=== PATIENT | male | born 1945 | race Caucasian/White ===

== ENCOUNTER → 2019-11-03 10:25 | Outpatient (CLI) | payer MEDICARE, OTHER, SELFPAY ==
--- NOTE | 2019-11-03 10:28 | DI.RAD.S_ITS ---
PROCEDURE: XR TOE LT MIN 2V INDICATIONS: pain/swelling left great toe TECHNIQUE: 3 views of the great toe acquired. COMPARISON: None. FINDINGS: Bones: There is a mildly comminuted fracture in the distal aspect of the 1st distal phalanx. There is slight associated dorsal angulation. No suspicious bony lesions. Soft tissues: There is soft tissue swelling of the great toe distally. No suspicious soft tissue densities. IMPRESSION: 1. Mildly comminuted fracture of the 1st distal phalanx. Dictated by: Shan Brooks M.D. on 11/03/2019 at 10:51 Approved by: Shan Brooks M.D. on 11/03/2019 at 11:19
== END ==
PROVIDERS: Visit Provider Nurse Practitioner
DX: S92.422A Displaced fracture of distal phalanx of left great toe, initial encounter for closed fracture (principal); M79.675 Pain in left toe(s); M79.89 Other specified soft tissue disorders; W22.09XA Striking against other stationary object, initial encounter
CPT/HCPCS: 73660

== ENCOUNTER → 2024-05-16 09:53 | Outpatient (CLI) | payer MEDICARE, OTHER, SELFPAY | LOC: LAB 09:56 | PROVIDERS: Referring Provider Physician Assistant Medical; Visit Provider Physician Assistant Medical | DX: R97.20 Elevated prostate specific antigen [PSA] (principal) | CPT/HCPCS: 36415; 84153; 84154 ==

== ENCOUNTER 2024-11-10 20:38 | Emergency (ER) | payer MEDICARE, OTHER, SELFPAY ==
[2024-11-10] VITALS (8 sets, daily range): BP systolic 98–112; BP diastolic 58–64; PULSE 70–86; RESP 12–28; TEMP 36.7; O2SAT 93–99; BMI 22.1
--- NOTE | 2024-11-10 20:31 | EKG_ITS ---
[facility] [address] [place] [address] Test Date: 2024-11-10 Pat Name: Yobani Garcia Department: [facility] Room: Gender: Male [employer]: TEMO : 1945 Requested By: Order Number: [id number] Reading MD: Bryson Harding Measurements Intervals [place] Rate: 86 P: 68 CT: 168 QRS: -64 QRSD: 84 T: 66 QT: 368 QTc: 440 Interpretive Statements Sinus rhythm with occasional premature ventricular complexes Left anterior fascicular block Electronically Signed On 11-11-2024 8:17:59 PST by Bryson Harding
--- NOTE | 2024-11-10 20:32 | DI.RAD.S_ITS ---
PROCEDURE: XR CHEST 1V INDICATIONS: chest pain TECHNIQUE: One view of the chest was acquired. COMPARISON: None. FINDINGS: Surgical changes and devices: None. Lungs and pleura: Lungs are clear. No pleural effusions or pneumothorax. Mediastinum: Mediastinal contours appear normal. Heart size is normal. Bones and chest wall: No suspicious bony lesions. Overlying soft tissues appear unremarkable. IMPRESSION: No acute cardiopulmonary abnormality is seen. Approved by: Sharmin Olmos M.D.,Ph.D. on 11/10/2024 at 22:24
--- NOTE | 2024-11-10 20:43 | ED.ARRPALP ---
HPI - Arrhythmia/Palpitations General Chief Complaint: Arrhythmia/Palpitations Stated Complaint: SVT, resolved Time Seen by Provider: 11/10/24 20:43 Source: EMS Mode of arrival: EMS History of Present Illness HPI narrative: 79-year-old male reports history of palpitation fast heart rate sensation after argument with his who has recent cognitive decline and recurrent episodes of not recognizing him, he has had to redirect her a number of times, and sometimes will take himself out of their home briefly to ?cool down? from the emotional distress. Four days ago he had a similar event, was able to go outside and breathe deeply, in the fast heart rate sensation went away. He has a fit bit that indicated that he had a fast heart rate of 170 tonight after similar emotional confrontation when was not recognize him as her , he went outside, no response to deep breathing, after 15 minutes symptoms persisted, he called 911, during transport noted to have narrow complex tachycardia, was given IV push adenosine 6 mg then 12 mg, with resolution of tachycardia. No dizziness, no chest pain, no shortness of breath. He denies neck, back, arm pains. He has a resting heart rate of a proximally 60, does not take metoprolol medication. No pacemaker. Related Data Home Medications Medication Instructions Recorded Confirmed [Clear Lungs ES] ##0 11/11/16 11/03/19 [GARLIC] ##0 11/11/16 11/03/19 [KRILL OIL] 500 ##0 11/11/16 11/03/19 [MELATONIN+L-THEANINE] ##0 11/11/16 11/03/19 [PROSTATE HEALTH] ##0 11/11/16 11/03/19 [THISYLIN MAX STR] ##0 11/11/16 11/03/19 [TURMERIC] ##0 11/11/16 11/03/19 [ZYFLAMEND WHOLE BODY] ##0 11/11/16 11/03/19 albuterol sulfate 90 mcg/actuation 1 puff INH ##0 11/11/16 11/03/19 aerosol inhaler (Ventolin HFA) beclomethasone dipropionate 80 1 puff INH BID ##0 11/11/16 11/03/19 mcg/actuation aerosol inhaler (Qvar) calcium citrate 315 mg 1 tab PO ##0 11/11/16 11/03/19 calcium-vitamin D3 6.25 mcg (250 unit) tablet (Citracal + Vitamin D Maximum) cholecalciferol (vitamin D3) 50 2,000 unit PO ##0 11/11/16 11/03/19 mcg (2,000 unit) capsule (Vitamin D3) coQ10 (ubiquinol) 100 mg capsule 100 mg PO ##0 11/11/16 11/03/19 cyanocobalamin (vitamin B-12) 1,000 mcg PO QDAY ##0 11/11/16 11/03/19 1,000 mcg tablet,extended release lutein 25 mg-zeaxanthin 5 mg 1 ea PO ##0 11/11/16 11/03/19 capsule multivitamin (Multiple Vitamins 1 tab PO QDAY ##0 11/11/16 11/03/19 tablet) Allergies Allergy/AdvReac Type Severity Reaction Status Date / Time amoxicillin [AMOXICILLIN] Allergy Unknown Verified 11/10/24 20:35 erythromycin base AdvReac Mild Nausea Verified 11/10/24 20:35 Patient History Social History Smoking Status: Never smoker Smoking Status: Never smoker Exam Narrative Exam Narrative: GENERAL: Well-developed patient, in mild distress. HEAD: Atraumatic. Normocephalic. EYES: Pupils equal round and reactive. Extraocular motions intact. No scleral icterus. No injection or drainage. ENT: Nose without bleeding, purulent drainage. Throat without erythema, tonsillar hypertrophy or exudate. Airway patent. NECK: Trachea midline. Non tender CARDIOVASCULAR: Regular rate and rhythm without murmurs, gallops, or rubs. RESPIRATORY: Clear to auscultation. Breath sounds equal bilaterally. No wheezes, rales, or rhonchi. GASTROINTESTINAL: Abdomen soft, non-tender, nondistended. EXTREMITIES: No edema or joint tenderness. BACK: Nontender without deformity or crepitance. No flank tenderness. NEURO: AOx3. Motor functions grossly nonfocal SKIN: No rash or erythema of visible areas Initial Vital Signs Initial Vital Signs: Vital Signs Oxygen Delivery Method Room Air 11/10/24 20:31 Course Orders Ordered: Discontinued Medications Aspirin (Aspirin 81 Mg Chew Tab) 324 mg PO NOW ONE Stop: 11/10/24 20:33 Last Admin: 11/10/24 22:19 Dose: Not Given Documented By: RUMA Vital Signs Vital signs: Vital Signs - 8 hr 11/10/24 22:30 Pulse Rate 70 Respiratory Rate 27 H Blood Pressure 101/61 Pulse Oximetry 94 MDM - Arrhythmia/Palpitations Lab Data Attestation: I reviewed the patient's lab results. Lab results narrative: White blood cell count 9000, hemoglobin 14.2, platelets adequate. Basic metabolic panel unremarkable. Liver functions and lipase normal. BNP negative. Troponin negative/unmeasurable. 11/10/24 20:32 11/10/24 20:32 Labs: Lab Results 11/10/24 Range/Units 20:32 WBC 9.0 (4.5-11.0) X10^3/uL RBC 4.71 (4.5-5.9) X10^6/uL Hgb 14.2 (13.5-17.5) g/dL Hct 42.0 (41-53) % MCV 89.1 (80-100) fL MCH 30.1 (26-34) PG MCHC 33.8 (30-36) % RDW 13.3 (11.6-14.8) % Plt Count 243 (150-400) X10^3/uL Neut % (Auto) 57.2 (50-75) % Lymph % (Auto) 29.8 (25-40) % [place] % (Auto) 9.2 (3-14) % Eos % (Auto) 3.1 (2-4) % Baso % (Auto) 0.7 (0-2) % Neut # (Auto) 5100 (1899-6144) /uL Lymph # (Auto) 2700 (9429-8714) /uL [place] # (Auto) 800 (0-900) /uL Eos # (Auto) 300 (0-450) /uL Baso # (Auto) 100 (0-100) /uL PT 10.7 (9.4-12.5) SECONDS INR 0.9 (0.9-1.3) APTT 33 (25.1-36.5) SECONDS Sodium 136 L (137-145) mmol/L Potassium 3.9 (3.4-5.1) mmol/L Chloride 106 (98-107) mmol/L Carbon Dioxide 25 (22-32) mmol/L BUN 20 (9-20) mg/dL Creatinine 0.73 (0.66-1.25) mg/dL Estimated GFR > 60 (>60) mL/min BUN/Creatinine Ratio 27.4 H (6-22) Glucose 88 (80-110) mg/dL Calcium 9.1 (8.4-10.2) mg/dL Magnesium 1.8 (1.6-2.3) mg/dL Total Bilirubin 0.5 (0.2-1.3) mg/dL AST 35 (17-59) IU/L ALT 25 (<50) IU/L Alkaline Phosphatase 43 (38-126) U/L Total Creatine Kinase 123 (55-170) U/L Troponin I < 0.012 (0.01-0.034) ng/mL NT-Pro-B Natriuret Pep 101 (<450) pg/mL Total Protein 7.1 (6.3-8.2) g/dL Albumin 3.8 (3.5-5.0) g/dL Globulin 3.3 (1.7-4.1) g/dL Albumin/Globulin Ratio 1.2 (1.0-2.8) Lipase 58 (23-300) U/L ECG Data Attestation: I personally reviewed and interpreted this ECG as follows: Interpretation: Normal sinus rhythm with rate 86, occasional PVC, left anterior fascicular block. NV 168, QRS 84, QTC 440. MDM Narrative Medical decision making narrative: 79-year-old male with narrow complex tachycardia resolved with pre-hospital EMS doses of adenosine 6 mg then 12 mg IV push, normal sinus rhythm on arrival. Similar episode few days ago he was able to abort with deep breathing. Both episodes were in emotional context with his who is suffering from cognitive decline, not recognize him, precipitating an argument. He feels recovered. EKG, labs pending. Troponin negative/unmeasurable. Electrolytes unremarkable. Patient feels better would like to go home, declines further testing at this time. We discussed stress management strategies. Patient pursuing mental health and possible alternative placement resources for his mentally declining . Discharged home, improved, stable. Return precautions discussed Discharge Plan Departure Patient Disposition: Home Clinical Impression: Paroxysmal SVT (supraventricular tachycardia) Instructions: DI for Paroxysmal Supraventricular Tachycardia Activity Restrictions/Additional Instructions: Fast heart rate episode tonight induced in context of emotional upset, similar episode 4 days ago resolved with deep breathing exercises, however tonight symptoms seemed to be persisting, with fast heart rate noted to be on your fit bit wrist monitor as well. You did not pass out or feel that you would pass out. You called EMS, who was able to administer IV adenosine 6 mg and then 12 mg, which aborted the abnormal SVT rhythm. While in the emergency department you did not seem to have any ectopic beats. Labs were sent, electrolytes unremarkable, troponin from your heart negative/unmeasurable. We did discuss possibly using metoprolol but your resting heart rate is about 60, might become dizzy if we start metoprolol medications. Discuss further with your regular provider and/or Cardiology. Contact information given to Dr. Villa of Cardiology who was on-call janell, though you might require PCP referral to see this floor representative. Consider follow up with your regular provider on Thursday to coordinate cardiology follow up further as needed. Sometimes cardiac monitoring might be done to see if you have other abnormal rhythms that might not be symptomatic, that might require specific treatments. Return earlier to this/nearest emergency department for any change worsening symptoms or any concerns prior Prescriptions: No Action beclomethasone dipropionate [Qvar] 80 MCG/PUFF aerosol 1 puff INH BID Qty: 0 albuterol sulfate [Ventolin HFA] 90 MCG/PUFF HFA aerosol inhaler 1 puff INH Qty: 0 [Clear Lungs ES] Qty: 0 [KRILL OIL] 500 Qty: 0 [THISYLIN MAX STR] Qty: 0 cholecalciferol (vitamin D3) [Vitamin D3] 2,000 UNIT capsule 2,000 unit PO Qty: 0 lutein-zeaxanthin 1 EACH capsule 1 ea PO Qty: 0 [GARLIC] Qty: 0 [MELATONIN+L-THEANINE] Qty: 0 multivitamin [Multiple Vitamins] 1 EACH tablet 1 tab PO QDAY Qty: 0 coQ10 (ubiquinol) 100 MG capsule 100 mg PO Qty: 0 [PROSTATE HEALTH] Qty: 0 [TURMERIC] Qty: 0 calcium citrate-vitamin D3 [Citracal + D Maximum] 1,500 MG/250 IU tablet 1 tab PO Qty: 0 cyanocobalamin (vitamin B-12) 1,000 MCG tablet extended release 1,000 mcg PO QDAY Qty: 0 [ZYFLAMEND WHOLE BODY] Qty: 0 Referrals: Bean Villa MD [Physician] - Stand Alone Forms: Patient Portal/API/Survey
[2024-11-10 21:45] LABS: Add Manual Diff / Slide Review NO; Basophils Absolute Auto 100 /uL (0-100); Basophils Percent Auto 0.7 % (0-2); Eosinophils Absolute Auto 300 /uL (0-450); Eosinophils Percent Auto 3.1 % (2-4); Hemoglobin 14.2 g/dL (13.5-17.5); Lymphocytes Absolute Auto 2700 /uL (1100-4500); Lymphocytes Percent Auto 29.8 % (25-40); Mean Corpuscular HGB Conc 33.8 % (30-36); Mean Corpuscular Hemoglobin 30.1 PG (26-34); Mean Corpuscular Volume 89.1 fL (80-100); Monocytes Absolute Auto 800 /uL (0-900); Monocytes Percent Auto 9.2 % (3-14); Neutrophils Absolute Auto 5100 /uL (1500-7000); Neutrophils Percent Auto 57.2 % (50-75); Platelet Count 243 X10^3/uL (150-400); Red Blood Cell Count 4.71 X10^6/uL (4.5-5.9); Red Cell Distribution Width 13.3 % (11.6-14.8)
[2024-11-10 21:57] LABS: INR 0.9 (0.9-1.3); Prothrombin Time 10.7 SECONDS (9.4-12.5)
[2024-11-10 21:59] LABS: PTT Partial Thromboplastin Tim 33 SECONDS (25.1-36.5)
[2024-11-10 22:00] LABS: Alanine Aminotransferase 25 IU/L (<50); Albumin 3.8 g/dL (3.5-5.0); Albumin Globulin Ratio 1.2 (1.0-2.8); Alkaline Phosphatase 43 U/L (38-126); Aspartate Aminotransferase 35 IU/L (17-59); BUN Creatinine Ratio 27.4 (6-22); Bilirubin Total 0.5 mg/dL (0.2-1.3); Blood Urea Nitrogen 20 mg/dL (9-20); Calcium 9.1 mg/dL (8.4-10.2); Carbon Dioxide 25 mmol/L (22-32); Chloride 106 mmol/L (98-107); Creatine Kinase 123 U/L (55-170); Estimated Glomerular Filt Rate > 60 mL/min (>60); Globulin 3.3 g/dL (1.7-4.1); Glucose 88 mg/dL (80-110); HEMOLYSIS < 15 (0-50); Lipase 58 U/L (23-300); Magnesium 1.8 mg/dL (1.6-2.3); Potassium 3.9 mmol/L (3.4-5.1); Sodium 136 mmol/L (137-145); Total Protein 7.1 g/dL (6.3-8.2)
[2024-11-10 22:11] LABS: NT-proBNP (BNP-Adult 18+) 101 pg/mL (<450); Troponin I < 0.012 ng/mL (0.01-0.034)
== END 2024-11-10 22:39 | disposition home or self-care (01) ==
PROVIDERS: Emergency Provider Emergency Medicine
DX: I47.10 Supraventricular tachycardia, unspecified (principal)
CPT/HCPCS: 36415; 71045; 80053; 82550; 83690; 83735; 83880; 84484; 85025; 85610; 85730; 93005; 99283; 99284

== ENCOUNTER → 2025-02-28 06:56 | Outpatient (CLI) | payer MEDICARE, OTHER, SELFPAY ==
--- NOTE | 2025-02-28 06:57 | DI.ECHO.S_ITS ---
[facility] : : [address] : : [place] : : [id number] : : Phone: [phone] Echocardiogram Report + + :Name: LISY MARTINS Study Date: 02/28/2025 Height: 74 in : :[facility] ReadingLocation: Weight: 170 lb : : Gender: Male BSA: 2.0 m2 : :: 1945 Age: 79 yrs BP: 130/67 mmHg: :Reason For Study: TACHYCARDIA : :Ordering Physician: JOSÉ MIGUEL, : :ANDRAE Performed By: Nick Park : :Referring: ANDRAE VILLA : + + Interpretation Summary 1) Normal left ventricular thickness and size with low normal systolic function (EF 50-55%). 2) Normal right ventricular size and function. 3) Non coronary cusp of the aortic valve is calcified. There is mild aortic regurgitation. 4) No prior Echo available for comparison. Procedure: A two-dimensional transthoracic echocardiogram with color flow and Doppler was performed. The study quality was technically good. There is no prior echocardiogram noted for this patient. The patient was in normal sinus rhythm during the exam. Left Ventricle: The left ventricle is normal in size. There is normal left ventricular wall thickness. There is no ventricular septal defect visualized. A false chord is noted (normal variant). The ejection fraction is estimated to be 50-55%. There are no focal wall motion abnormalities. Diastolic parameters suggest a relaxation abnormality of the left ventricle, consistent with probable normal filling pressures. Right Ventricle: The right ventricle is normal in size and function. Atria: The left atrial size is normal. Right atrial size is normal. There is no Doppler evidence for an interatrial shunt. Mitral Valve: The mitral valve leaflets appear normal. There is no evidence of stenosis, fluttering, or prolapse. There is trace mitral regurgitation. Aortic Valve: The aortic valve is trileaflet. Non coronary cusp is calcified. There is no aortic valve stenosis. There is mild aortic regurgitation. Tricuspid Valve: The tricuspid valve leaflets are thin and pliable. There is mild tricuspid regurgitation. The right ventricular systolic pressure is estimated to be at least 41 mmHg based on an estimated right atrial pressure of 8 mm Hg. Pulmonic Valve: The pulmonic valve leaflets are thin and pliable; valve motion is normal. There is trace pulmonic regurgitation. Great Vessels: The aortic root is normal size. The ascending aorta is at the upper limits of normal in size. The pulmonary artery is normal size. The IVC is dilated (diameter is greater than 2.1 cm) yet it collapses greater than 50% with a sniff. This suggests a right atrial pressure of 8 mm Hg. Pericardium/ Pleura There is no pericardial effusion. There is no pleural effusion. MMode/2D Measurements & Calculations LVIDd: 5.3 cm LVOT diam: 2.1 cm LVIDs: 3.9 cm Ao root diam: 3.4 cm FS: 26.4 % asc Aorta Diam: 3.8 cm EPSS: 0.55 cm IVSd: 0.93 cm LVPWd: 0.93 cm LV núñez. diameter/BSA (cm/m^2): 2.6 LV sys. diameter/BSA (cm/m^2): 1.9 LA A2 area: 16.6 cm2 RA long axis: 5.6 cm LA A4 area: 13.2 cm2 RA area: 18.2 cm2 LA length (vol): 4.6 cm RA vol: 50.2 ml LA vol: 40.0 ml RA : 24.8 ml/m2 LA vol index: 19.7 ml/m2 IVC diam: 2.4 cm RVD1 (basal): 3.2 cm RVD2 (mid): 2.3 cm TAPSE: 2.4 cm Doppler Measurements & Calculations Ao V2 max: 206.5 cm/sec LVOT Max Kenneth: 117.2 cm/sec Ao V2 mean: 143.8 cm/sec LV V1 max P.5 mmHg Ao max P.1 mmHg LV V1 VTI: 26.3 cm Ao mean P.2 mmHg ELISHA(I,D): 2.1 cm2 Ao V2 VTI: 45.4 cm ELISHA(V,D): 2.0 cm2 sev ratio: 0.58 ELISHA indexed to BSA (cm^2/m^2): 1.0 AI P1/2t: 505.6 msec AI dec slope: 241.3 cm/sec2 MV E max kenneth: 59.3 cm/sec TR max kenneth: 288.4 cm/sec MV A max kenneth: 70.9 cm/sec TR max P.3 mmHg MV E/A: 0.84 PA V2 max: 84.5 cm/sec Med Peak E' Kenneth: 7.3 cm/sec PA V2 mean: 61.5 cm/sec E/E' med: 8.1 PA mean P.6 mmHg Lat Peak E' Kenneth: 8.3 cm/sec PA pr(Accel): 8.8 mmHg E/E' lat: 7.2 E/e' average: 7.6 MV dec time: 0.22 sec SV(OT): 94.8 ml Reading Physician:11:25 AM
== END ==
PROVIDERS: Referring Provider Internal Medicine Cardiovascular Disease; Visit Provider Internal Medicine Cardiovascular Disease
DX: I47.10 Supraventricular tachycardia, unspecified (principal); I08.2 Rheumatic disorders of both aortic and tricuspid valves
CPT/HCPCS: 93306